=== PATIENT | male | born 1970 | race American Indian/Alaskan Native ===

== ENCOUNTER 2019-05-02 13:13 | Outpatient (CLI) | payer BC ==
--- NOTE | 2019-05-02 13:46 | XRay Report ---
CHEST 2 VIEWS INDICATION: R06.02 SHORTNESS OF BREATH. COMPARISON: None. FINDINGS: Support devices: None. Heart: Within normal limits. Pulmonary vasculature: Normal. Lungs/pleura: No acute air space or interstitial disease. No pneumothorax. Additional findings: None. IMPRESSION: Normal chest. Signer Name: Rober Loco MD Signed: 05/02/2019 1:42 PM Workstation Name: [id number]
== END 2019-05-02 13:14 | disposition home or self-care (01) ==
LOC: XRAY 13:13
PROVIDERS: ATTEND Family Medicine
DX: R06.02 Shortness of breath (principal)
CPT/HCPCS: 71046